=== PATIENT | male | born 1960 | race Caucasian/White ===

== ENCOUNTER 2020-10-05 12:04 | Outpatient (REF) | payer OTHER, SELFPAY ==
[2020-10-05 13:59] LABS: MANUAL DIFF FLAG NO
[2020-10-05 14:09] LABS: Basophils Absolute Auto 0.1 X10*3/uL (0.0-0.2); Basophils Percent Auto 0.6 % (0-2); Eosinophils Absolute Auto 0.1 X10*3/uL (0.0-0.4); Eosinophils Percent Auto 0.8 % (0-4); Hematocrit 47.8 % (42-52); Hemoglobin 16.1 g/dl (14.0-18.0); Imm Gran Abs Auto 0.04 X10*3/uL (0.00-0.03); Imm Gran Pct Auto 0.5 % (0.0-0.4); Lymphocytes Absolute Auto 3.2 X10*3/uL (1.2-4.9); Lymphocytes Percent Auto 36.7 % (20-40); Mean Corpuscular HGB Conc 33.7 g/dl (31.0-36.0); Mean Corpuscular Hemoglobin 32.5 pg (27.0-33.0); Mean Corpuscular Volume 96.4 fL (80-98); Mean Platelet Volume 10.7 fL (9.4-12.4); Monocytes Absolute Auto 0.5 X10*3/uL (0.1-1.2); Neutrophils Absolute Auto 4.9 X10*3/uL (2.0-8.3); Neutrophils Percent Auto 55.4 % (45-73); Platelet Count 239 X10*3/uL (160-400); Red Blood Count 4.96 X10*6/uL (4.60-5.80); Red Cell Distribution Width 12.8 % (11.0-16.0); White Blood Count 8.8 X10*3/uL (4.8-10.8)
[2020-10-05 14:30] LABS: Alanine Aminotransferase 26 U/L (0-40); Albumin Level 4.2 g/dL (3.5-5.0); Alkaline Phosphatase 88 U/L (39-117); Anion Gap 13 (12-20); Aspartate Amino Transferase 22 U/L (5-37); Bilirubin Total 0.7 mg/dL (0.0-1.0); Blood Urea Nitrogen 14 mg/dL (9-16); Calcium 9.4 mg/dL (8.4-10.2); Carbon Dioxide 28 mmol/L (22-29); Chloride 103 mmol/L (96-108); Estimated Glomerular Filt Rate > 60; Glucose Random 99 mg/dL (60-115); Potassium 4.4 mmol/L (3.3-5.1); Sodium 140 mmol/L (135-145); Total Protein 6.8 g/dL (6.5-8.0)
== END 2020-10-05 12:05 | disposition home or self-care (01) ==
LOC: HO.10HDL 12:04
PROVIDERS: Visit Provider Internal Medicine
DX: Z01.818 Encounter for other preprocedural examination (principal); K21.9 Gastro-esophageal reflux disease without esophagitis; E78.00 Pure hypercholesterolemia, unspecified
CPT/HCPCS: 36415; 80053; 85025

== ENCOUNTER 2023-05-04 10:45 | Outpatient (REF) | payer OTHER, SELFPAY ==
[2023-05-04 12:58] LABS: MANUAL DIFF FLAG NO
[2023-05-04 13:10] LABS: Basophils Percent Auto 0.4 % (0-2); Eosinophils Absolute Auto 0.2 X10*3/uL (0.0-0.4); Eosinophils Percent Auto 2.1 % (0-4); Hematocrit 44.2 % (42.0-52.0); Hemoglobin 15.1 g/dl (14.0-18.0); Imm Gran Abs Auto 0.02 X10*3/uL (0.00-0.03); Imm Gran Pct Auto 0.3 % (0.0-0.4); Lymphocytes Absolute Auto 3.1 X10*3/uL (1.2-4.9); Lymphocytes Percent Auto 40.8 % (20-40); Mean Corpuscular HGB Conc 34.2 g/dl (31.0-36.0); Mean Corpuscular Hemoglobin 32.3 pg (27.0-33.0); Mean Corpuscular Volume 94.6 fL (80.0-98.0); Mean Platelet Volume 10.8 fL (9.4-12.4); Monocytes Absolute Auto 0.5 X10*3/uL (0.1-1.2); Monocytes Percent Auto 6.4 % (2-11); Neutrophils Absolute Auto 3.8 x10*3/uL (2.0-8.3); Platelet Count 231 X10*3/uL (160-400); Red Blood Count 4.67 X10*6/uL (4.60-5.80); Red Cell Distribution Width 12.3 % (11.0-16.0); White Blood Count 7.6 X10*3/uL (4.8-10.8)
[2023-05-04 13:19] LABS: Alanine Aminotransferase 32 U/L (0-40); Albumin Level 4.4 g/dL (3.5-5.0); Alkaline Phosphatase 90 U/L (39-117); Anion Gap 13 (12-20); Aspartate Amino Transferase 25 U/L (5-37); Bilirubin Total 0.6 mg/dL (0.0-1.0); Blood Urea Nitrogen 14 mg/dL (9-16); Calcium 10.2 mg/dL (8.4-10.2); Carbon Dioxide 29 mmol/L (22-29); Chloride 101 mmol/L (96-108); Cholesterol 167 mg/dL (<200); Estimated Average Glucose 123 mg/dL; Estimated Glomerular Filt Rate > 60; Glucose Random 124 mg/dL (60-115); Hemoglobin A1c % 5.9 % (<6.0); Potassium 4.8 mmol/L (3.3-5.1); Sodium 138 mmol/L (135-145); Total Protein 7.4 g/dL (6.5-8.0)
== END 2023-05-04 10:46 | disposition home or self-care (01) ==
LOC: HO.HMGCLDS 10:45
PROVIDERS: PCP Internal Medicine; Visit Provider Internal Medicine
DX: I10 Essential (primary) hypertension (principal); R73.03 Prediabetes; Z86.73 Personal history of transient ischemic attack (TIA), and cerebral infarction without residual deficits
CPT/HCPCS: 36415; 80053; 82465; 83036; 85025

== ENCOUNTER 2023-12-14 14:28 | Outpatient (REF) | payer OTHER, SELFPAY ==
[2023-12-14 16:24] LABS: Estimated Average Glucose 143 mg/dL; Hemoglobin A1c % 6.6 % (<6.0)
[2023-12-14 17:11] LABS: Alanine Aminotransferase 33 U/L (0-40); Alkaline Phosphatase 78 U/L (39-117); Anion Gap 11 (12-20); Aspartate Amino Transferase 31 U/L (5-37); Bilirubin Total 0.4 mg/dL (0.0-1.0); Blood Urea Nitrogen 13 mg/dL (9-16); Calcium 9.4 mg/dL (8.4-10.2); Carbon Dioxide 29 mmol/L (22-29); Chloride 105 mmol/L (96-108); Estimated Glomerular Filt Rate 57; Glucose Random 124 mg/dL (60-115); Potassium 4.5 mmol/L (3.3-5.1); Sodium 140 mmol/L (135-145)
== END 2023-12-14 14:29 | disposition home or self-care (01) ==
LOC: HO.HMGCLDS 14:28
PROVIDERS: PCP Internal Medicine; Visit Provider Internal Medicine
DX: R73.03 Prediabetes (principal); K21.9 Gastro-esophageal reflux disease without esophagitis; Z86.73 Personal history of transient ischemic attack (TIA), and cerebral infarction without residual deficits
CPT/HCPCS: 36415; 80053; 83036

== ENCOUNTER 2024-03-14 12:41 | Outpatient (REF) | payer OTHER, SELFPAY ==
[2024-03-14 16:00] LABS: MANUAL DIFF FLAG NO
[2024-03-14 16:20] LABS: Basophils Percent Auto 0.4 % (0-2); Eosinophils Absolute Auto 0.1 X10*3/uL (0.0-0.4); Eosinophils Percent Auto 1.1 % (0-4); Hematocrit 43.4 % (42.0-52.0); Hemoglobin 14.9 g/dl (14.0-18.0); Imm Gran Abs Auto 0.01 X10*3/uL (0.00-0.03); Imm Gran Pct Auto 0.1 % (0.0-0.4); Lymphocytes Absolute Auto 3.4 X10*3/uL (1.2-4.9); Lymphocytes Percent Auto 46.3 % (20-40); Mean Corpuscular HGB Conc 34.3 g/dl (31.0-36.0); Mean Corpuscular Hemoglobin 32.2 pg (27.0-33.0); Mean Corpuscular Volume 93.7 fL (80.0-98.0); Mean Platelet Volume 10.6 fL (9.4-12.4); Monocytes Absolute Auto 0.4 X10*3/uL (0.1-1.2); Neutrophils Absolute Auto 3.4 x10*3/uL (2.0-8.3); Neutrophils Percent Auto 46.1 % (45-73); Platelet Count 236 X10*3/uL (160-400); Red Blood Count 4.63 X10*6/uL (4.60-5.80); Red Cell Distribution Width 12.8 % (11.0-16.0); White Blood Count 7.4 X10*3/uL (4.8-10.8)
[2024-03-14 16:28] LABS: Alanine Aminotransferase 49 U/L (0-40); Albumin Level 4.3 g/dL (3.5-5.0); Alkaline Phosphatase 84 U/L (39-117); Anion Gap 13 (12-20); Aspartate Amino Transferase 34 U/L (5-37); Bilirubin Total 0.6 mg/dL (0.0-1.0); Blood Urea Nitrogen 11 mg/dL (9-16); Calcium 9.9 mg/dL (8.4-10.2); Carbon Dioxide 27 mmol/L (22-29); Chloride 103 mmol/L (96-108); Cholesterol 204 mg/dL (<200); Estimated Glomerular Filt Rate 56; Glucose Fasting 98 mg/dL (60-99); HDL Cholesterol 42 mg/dL (>40); LDL Cholesterol Calculated 97 mg/dL (<100); Potassium 4.7 mmol/L (3.3-5.1); Sodium 138 mmol/L (135-145); Total Protein 7.2 g/dL (6.5-8.0); Triglycerides 325 mg/dL (<150)
[2024-03-14 16:48] LABS: Prostate Specific Antigen 1.28 ng/mL (<0.05-4.0)
[2024-03-14 17:44] LABS: Estimated Average Glucose 140 mg/dL; Hemoglobin A1c % 6.5 % (<6.0)
== END 2024-03-14 12:42 | disposition home or self-care (01) ==
LOC: HO.HMGCLDS 12:41
PROVIDERS: PCP Internal Medicine; Visit Provider Internal Medicine
DX: I10 Essential (primary) hypertension (principal); Z12.5 Encounter for screening for malignant neoplasm of prostate; Z13.1 Encounter for screening for diabetes mellitus; E11.9 Type 2 diabetes mellitus without complications; J44.9 Chronic obstructive pulmonary disease, unspecified
CPT/HCPCS: 36415; 80053; 80061; 83036; 84153; 85025

== ENCOUNTER 2024-09-05 11:35 | Outpatient (REF) | payer OTHER, SELFPAY ==
--- OUTSIDE RECORDS SUMMARY | 2024-09-05 12:46 | XMS_ITS | Data Portability ---
Author Organization [facility]NA[facility] [address] Address [address] [place] [address] Assessment No assessment recorded. Plan of Treatment Reminders Order Date Submit Date Provider Last Modified By Organization Details Last Modified Time Details Appointments None recorded. Lab None recorded. Referral None recorded. Procedures None recorded. Surgeries None recorded. Imaging None recorded. Medication Orders pred[facility]one 10 mg tablet 2021 [id number], [address] [place], [address], 10:04:50 amoxicillin 875 mg-potassiu m clavulanate 125 mg tablet 2021 [id number], [address] [place], [address], 10:04:49 benzonatate 200 mg capsule 2021 [id number], [address] [place], [address], 10:04:51 Patient TargetsNo targets recorded. Patient Instructions Encounter Date Encounter Id Patient Instructions Last Modified By Organization Details Last Modified Time 08/12/2022 [id number] bronchitis: care instructions [email or web address] Not available 08/12/2022 10:04:47 Acute bronchitis is a common clinical condition characterized by an acute onset but persistent cough, with or without sputum production. It is typically self-limited, resolving within one to three weeks. Symptoms result from inflammation of the lower respiratory tract and are most frequently due to viral infection. Treatment is focused on patient education and supportive care. Antibiotics are not needed for the great majority of patients with acute bronchitis but are greatly overused for this condition. Reducing antibiotic use for acute bronchitis is a national and international health care priority. In most patients, the cough persists for 1 to 3 weeks, with a average duration of 18 days. Try to stop smoking - this can lead to chronic bronchitis and eventually emphysema. The cough may be associated with either purulent or nonpurulent sputum production The presence of purulent sputum is a nonspecific finding and does not appear to be predictive of bacterial infection or that antibiotics are needed. For the great majority of patients, use of antibiotics does not hasten recovery or prevent complications but puts patients at increased risk of adverse effects including potentially severe complications such as Clostridioides difficile infection and anaphylaxis. Non-Pharmacological treatment for coughin. Throat lozenges 2. Hot tea 3. Honey 4. Smoking cessation 5. Avoidance of secondhand smoke. Pharmacological Treatment: 1. Robatussin or Guafenasin 2. Antihistamines 3. Dextromethoraphen I would plan on being seen again if any of the following symptoms develop: 1. Fever (100.5) 2. Shortness of breath 3. Wheezing 4. Worsening Cough. I would go to the ER if you develop: 1. Severe Shortness of breath 2. Chest Pain 3. Wheezing 4. Coughing up Blood You blood pressure was elevated during your visit with us and you do not have a history of Hypertension or taking blood pressure medications currently. This is important to monitor and address with your PCP. Undiagnosed hypertension that remains untreated can lead to: 1. Kidney Failure 2. Stroke 3. Congestive Heart Failure. Please get a blood pressure cuff and keep a journal of your daily blood pressure. Once in the AM and Once in a PM. Please schedule an appointment with your Primary Care Doctor to discuss the results of your journal. Not available 08/12/2022 10:04:46 Reason for Referral None Reported. Problems Name Problem SNOMED Code Status Onset Date Resolution Date Notes Provider Name and Address Organization Details Recorded Time Gastroesophage al reflux disease 521017388 Active 2021 [facility] 09:47:07 Hyperlipidemia 78981792 Active 2021 A[facility] N[facility] 09:47:15 Problem Notes None recorded. Medical Equipment None Reported. Allergies No known drug allergies Medications Name Sig Start Date Stop Date Status Note LastModified by Organization Details LastModified Time prednisone 10 mg tablet 3 pills po qd x 3 days, 2 pills po qd x 3 days, 1 pill po qd x 3 days 2021 active Not Available Not Available Not Avai lable benzonatate 200 mg capsule Take 1 capsule 3 times a day by oral route. 2021 active Not Available Not Available Not Avai lable omeprazole 10 mg capsule,delay ed release Take 2 capsules every day by oral route. active Not Available Not Available No t Available simvastatin 20 mg tablet Take 1 tablet every day by oral route. active Not Available Not Available No t Available amoxicillin 875 mg-potassium clavulanate 125 mg tablet Take 1 tablet twice a day by oral route for 10 days. 2021 active Not Available Not Available Not Avai lable Vitals Date Recorded Body height Body mass index (BMI) Body weight Oxygen saturation Oxygen saturation in Arterial blood by Pulse oximetry Heart rate Respiratory rate Body temperature Systolic blood pressure Diastolic blood pressure Provider Name and Address Organization Details Last Updated DateTime 2 167.64 cm 26.6 kg/m2 50123.7 4 g 98 % 98 % 87 /min 20 /min 98 [degF] 160 mm[Hg] 86 mm[Hg] [facility] 09:48:29 Date Recorded Systolic blood pressure Diastolic blood pressure Provider Name and Address Organization Details Last Updated DateTime 08/12/2022 136 mm[Hg] 84 mm[Hg] ANAI MORALES [address] [place] [address] [place], [address], [place] [facility] 08/12/2022 10:01:15 Social History Question Answer Notes LastModified by Organizat ion Details LastModified Time Tobacco Smoking Status Current Every Day Smoker ANAI Naranjo [facility] 08/12/2022 09:47:44 What Is Your Level Of Alcohol Consumption? None Information not available 08/12/2022 Are You Currently Employed? Yes [email or web address] Information not available 08/12/2022 What Is The Highest Grade Or Level Of School You Have Completed Or The Highest Degree You Have Received? [id number] Information not available 08/12/2022 What Is Your Water Source? City Information not available 08/12/2022 What Is Your Heat Source? Electric Information not available 08/12/2022 Have You Had Direct Contact, Or Contact During Intimacy, With Monkeypox Rash, Scabs, Or Body Fluids From A Person With Monkeypox? No Information not available 08/12/2022 What Is Your Current Pack Years? 10-19packrafaela s Information not available 08/12/2022 What Is Your Relationship Status? Unknown Information not available 08/12/2022 At What Age Did You Start Smoking Tobacco? 40 Information not available 08/12/2022 How Much Tobacco Do You Smoke? 1 PPD Information not available 08/12/2022 Do You Use Any Illicit Or Recreational Drugs? No [email or web address] Information not available 08/12/2022 Have You Recently Traveled Abroad? No Information no t available 08/12/2022 Are You Currently In School? No [email or web address] Information not available 08/12/2022 Sex: Unknown Functional Status None recorded. Mental Status None recorded. Family History Relationship Description Onset Age of this Age Resolved Age Notes LastModified by Organization Details LastModified Time Father No current problems or disability [email or web address] Not available 08/12/2022 09:47:17 Mother No current problems or disability [email or web address] Not available 08/12/2022 09:47:17 Medical History No medical history recorded. Immunizations Vaccine Type Date Status Note Provider Nam e and Address Organization Details Recorded Time Influenza, split virus, quadrivalent, PF 06/18/2020 completed ANAI N[facility] 08/12/2022 09:46:22 COVID-19, mRNA, LNP-S, PF, 30 mcg/0.3 mL dose 12/12/2020 completed [facility]I [facility] 08/12/2022 09:46:22 Influenza, split virus, quadrivalent, PF 06/16/2022 completed ZE NGUYEN WADDELL null, [place] - [facility] 08/12/2022 09:46:22 Influenza, split virus, quadrivalent, PF 07/14/2021 completed ZE NGUYEN WADDELL null, [place] - [facility] 08/12/2022 09:46:22 COVID-19, mRNA, LNP-S, PF, 30 mcg/0.3 mL dose 01/03/2021 completed ZE NGUYEN WADDELL null, [place] - [facility] 08/12/2022 09:46:22 COVID-19, mRNA, LNP-S, PF, 100 mcg/0.5mL dose or 50 mcg/0.25mL dose 09/16/2021 completed ZE NGUYEN WADDELL null, [place] - [facility] 08/12/2022 09:46:22 COVID-19, mRNA, LNP-S, bivalent, PF, 50 mcg/0.5 mL or 25mcg/0.25 mL dose 06/09/2022 completed ZE NGUYEN WADDELL null, [place] - [facility] 08/12/2022 09:46:22 Past Encounters Encounter ID Performer Location Encounter Start Date Encounter Closed Date Diagnosis/Indication Diagnosis SNOMED-CT Code Diagnosis ICD10 Code [id number] [address] [facility] [place] [phone] 03/20/2017 08:12:00 03/20/2017 08:55:17 [id number] [address] [place] [phone] [id number] 04/03/2019 10:26:59 04/03/2019 11:19:02 [id number] [address] [place] [address] 04/02/2019 09:31:45 04/02/2019 10:40:48 [id number] ANAI MORALES [address] [place] [id number] 08/12/2022 08:42:39 08/12/2022 10:29:13 Elevated blood-pressure reading without diagnosis of hypertension 789214847 R03.0 Wheezing 04436944 R06.2 Cough 66632401 R05.9 Health Concerns Section Related Observation LastModified by Organization Detai ls LastModified Time None Recorded Concern Status LastModified by Organization Details LastModified Time None Recorded Advance Directives Directive None Recorded Payers Encounter Date Sequence Insurance Name Policy Number Policy Pimentel Covered Member ID Pimentel Member ID Guarantor Name 03/20/2017 1 [place] José Mccrackennew [facility] [id number] [facility] 04/02/2019 1 [place] José Johnson [id number] [facility] 04/03/2019 1 [place] José Johnson [id number] [facility]carlos [facility] 08/12/2022 1 [place] José Mccrackennew [facility] [id number] [facility] Notes Date Note Type Note Provider Name and Address Organization Details Recorded Time 08/12/2022 text/html CongestionReport ed bypatient.Location:subs ternal; without radiation Quality:tightness; inspiratory Severity:mild; 0/10 pain Duration:5 days Context:smoker; Co-workers ill with similar symptoms Alleviating Factors:none Associated Symptoms:no shortness of breath; no chest pain/discomfort; no palpitations; no orthopnea; no fever; no fatigue;cough;coughing up sputum white;hoarsenessNotes:T he patient state head congestion and chest congestion. Smoker but this isn't his typical smoker cough. Hears wheezing. Denies COPD. The patient states its more of a tickle in his throat that causes his symptoms. The patient states work in the heat is causing exacerbation. The patient denies SOB or CP. No fever or sore throat. The patient is vaccinatecd for COVID. ANAI MORALES [address] [place], [address], [place] - [facility] 08/12/2022 10:10:07
--- OUTSIDE RECORDS SUMMARY | 2024-09-05 12:47 | XMS_ITS ---
Author Organization [facility] Address [address] [place] [address] Care Team Providers Care Early Childhood Associate Teacher Name Role Phone Will Ruiz MD Primary Care Provider Unavaila Ramón Lopez Jr REASON FOR VISIT cancel appt on 03/20/2024 Encounters Encounter Location Date Provider Diagnosis [facility] [address] [place] [address] 03/19/2024 Ramón Cote Jr PLAN OF TREATMENT No Information
--- OUTSIDE RECORDS SUMMARY | 2024-09-05 12:47 | XMS_ITS ---
Author Organization [facility] Address [address] [place] [address] Care Team Providers Care Water Resource Engineer Name Role Phone Will Ruiz MD Primary Care Provider Unavaila Ramón Lopez Jr Unavailable [phone] REASON FOR VISIT Patient presents today for a colon screenng Encounters Encounter Location Date Provider Diagnosis [facility] [address] [place] [address] 03/20/2024 Ramón Cote Jr PLAN OF TREATMENT No Information
--- OUTSIDE RECORDS SUMMARY | 2024-09-05 12:47 | XMS_ITS | Patient Health Record ---
Author Organization [facility] Address [address] [place] [phone] Care Team Providers Care Per Diem Registered Nurse Name Role Phone Will Ruiz MD Primary Care Provider Ramón Alanis Jr Unavailable [phone] ALLERGIES Allergen (clinical drug ingredient) Drug/Non Drug Allergy documented on EMR Reaction Allergy Type Onset Date Status seasonal/animals (uncoded) Unknown Allergy Active REASON FOR REFERRAL No Information MEDICATIONS Medication SIG (Take, Route, Fr equency, Duration) Notes Start Date End Date Status Simvastatin 20mg Act cristiano MoviPrep 100 GM as directed before c olonoscopy Orally for 1 dose 02/16/2012 09/04/2024 Active Omeprazole 20 MG 2 capsules Orally On ce a day for 30 days Active SOCIAL HISTORY Sex Assigned At : Social History Observation Description Sex Assigned At Unknown PROBLEMS Problem Type ICD Code Onset Dates Problem Status W/U Status Risk SNOMED Code Notes Problem Esophageal reflux (530.81) Active confirmed Esophageal reflux (000829844) Problem Screening for colon cancer (V76.51) Active confirmed Screening for colon cancer (723961357) Encounters Encounter Location Date Provider Diagnosis [facility] [address] [place] [phone] 03/20/2024 Ramón Cote Jr [facility] [address] [place] [phone] 03/19/2024 Ramón Cote Jr PLAN OF TREATMENT Future Test Test Name Order Date UPPER GI ENDOSCOPY 02/16/2012 COLONOSCOPY 02/16/2012 Insurance Providers Payer Name Payer Address Payer Phone Subscriber Number Group Number Insured Name Patient Relationship to Insured Coverage Start Date Coverage End Date [employer] PKaitlin BAEZ [id number] [place] [address] [id number] DMITRI GREGORIO Self - patient is the insured MEDICAL (GENERAL) HISTORY Medical History History ICD Code GASTROESOPHAGEAL REFLUX DISEASE Surgical History Surgery Date(Month/Year) FRACTURED NOSE WITH SURGERY ankle surgery
[2024-09-05 13:23] LABS: Anion Gap 14 (12-20); Blood Urea Nitrogen 11 mg/dL (9-16); Carbon Dioxide 26 mmol/L (22-29); Chloride 102 mmol/L (96-108); Estimated Glomerular Filt Rate > 60; Glucose Random 132 mg/dL (60-115); Sodium 138 mmol/L (135-145)
[2024-09-05 13:24] LABS: Estimated Average Glucose 148 mg/dL; Hemoglobin A1C 178.9684 umol/L; Hemoglobin A1c % 6.8 % (<6.0); Total Hemoglobin (HGBA1C) 3556.3757 umol/L
[2024-09-05 13:44] LABS: Creatinine Urine 126.56 mg/dL; Microalbum/Creatinine Ratio Ur 8.6 ug/mg cr (<30)
== END 2024-09-05 11:36 | disposition home or self-care (01) ==
LOC: HO.HMGCLDS 11:35
PROVIDERS: PCP Internal Medicine; Visit Provider Internal Medicine
DX: R73.03 Prediabetes (principal)
CPT/HCPCS: 36415; 80048; 82043; 82570; 83036